=== PATIENT | female | born 1960 | race Caucasian/White ===

== ENCOUNTER → 2019-11-15 06:07 | Outpatient (CLI) | payer MEDICARE, SELFPAY ==
--- NOTE | 2019-11-15 06:08 | CA_ITS ---
APPROVED REPORT EXAM: Comprehensive 2D, Doppler, and color-flow Echocardiogram Administrative Support Associate: María Elena Chicas RDCS Ht: 5 ft 2 in Wt: 147lbs BSA: 1.68 BP: 149/91 mmHg Indications: CP,CAD,SOA,COPD,SMOKER,HTN,HLP 2D Dimensions LVOT 2.04 cm (M/F) 1.5-2.5 M-Mode Dimensions RVDd 2.79 cm (0.9-2.6) LVDd 4.26 cm (3.5-5.7) LVDs 3.15 cm (3.5-5.7) IVSd 0.79 cm (0.6-1.1) PWd 0.75 cm (0.6-1.1) EF (Teich) 51.50% FS 26.10% EDV (Teich) 81.30 mL ESV (Teich) 39.40 mL LV Diastology E/A Ratio 1.11 Mitral Valve MV A Velocity 63.00 (40-130 cm/s) Left Ventricle Left atrium is mildly enlarged, left ventricle is normal size, mild concentric left ventricular hypertrophy, visually estimated ejection fraction 55% with no regional wall motion abnormality, grade 1 diastolic dysfunction seen without tissue Doppler evidence of raise left atrial pressure. Right Ventricle Right atrium and right ventricular mildly enlarged with normal contractility. Aortic Valve Aortic valve is thickened and calcified leaflet chordae display good mobility, there is no aortic stenosis or aortic insufficiency. Mitral Valve Mitral valve leaflets are minimally thickened, there is mild mitral regurgitation. Tricuspid Valve Tricuspid valve is grossly normal, there is mild tricuspid regurgitation. Pulmonic Valve Pulmonic valve is poorly visualized. Great Vessels Aortic root is normal size. Pericardium No significant pericardial effusion noted. Conclusion 1. Mild biatrial enlargement, normal left ventricular size, mild concentric left ventricular hypertrophy, visually estimated ejection fraction 55% with no regional wall motion abnormality, grade 1 diastolic dysfunction seen without tissue Doppler evidence of raise left atrial pressure. 2. Mildly enlarged right ventricle with normal contractility. 3. Mild mitral and tricuspid regurgitation. 4. No significant pericardial effusion noted. Electronically signed by : Dionisio Fox, 11/15/2019 18:15:35
--- NOTE | 2019-11-15 06:13 | CA_ITS ---
APPROVED REPORT Exam: Pharmacologic Technologist: Nahomy Portillo Ht: 5 ft 2 in Wt: 147 lbs BSA: 1.68 m2 HR: 68 bpm BP: 129/76 mmHg Indications: Shortness of Breath, CHest pain Medical History Medications: Levothyroxine,,,,, Isosorbide,,,,, Aspirin,,,,, Pravastatin,,,,, Metformin,,,,, MeLOXICAM,,,,, CloPIdogrel,,,,, BisOPROLOL,,,,, Ezetimbe,,,,, Stress Test Details Test: LEXISCAN HR Resting HR: 71 bpm Max Heart Rate (APMHR): 159 bpm Max HR Achieved: 105 bpm Target HR (85% APMHR): 135 bpm % of APMHR: 66 Recovery HR: 88 bpm BP Resting BP: 129.0/76.0 mmHg Max BP: 156.0/89.0 mmHg Recovery BP: 123.0/79.0 mmHg ECG Clinical Exercise duration: 04:00 min Highest Stage Achieved: Stress ECG Conclusion Resting ECG: Normal sinus rhythm Symptoms: Chest heaviness, shortness of air, malaise. Arrhythmias/Ectopy: None ST-T Changes: NS T wave changes Conclusion: Unremarkable Lexiscan stress. Myoview images reported seprately Electronically signed by : Dionisio Fox, 11/15/2019 19:24:32
--- NOTE | 2019-11-15 06:13 | NM_ITS ---
APPROVED REPORT Exam: Nuclear Stress Test Indication: Chest pain, SOB, Fatigue, CAD, DM, High cholesterol, Tobacco use, Family history Patient Location: Outpatient Stress Tech: Nahomy Portillo CA Tech:Lisa Mijares, ARRT, RT (R)(N) Ht: 5 ft 2 in Wt: 147 lbs Bra Size: 42D HR: 68 bpm BP: 129/76 mmHg BSA: 1.68 m2 BMI: 26.8 History: Chest pain, SOB, Fatigue, CAD, DM, High cholesterol, Tobacco use, Family history Procedure: Patient received a 0.4 mg of intravenous Lexiscan, resting heart rate 68 bpm, resting blood pressure 129/76 mmHg, with Lexiscan maximum heart rate achived was 101 bpm which is Less than 85 % of the maximum predicted heart rate and blood pressure was 156/89 mmHg. Electrocardiogram Resting electrocardiogram showed sinus rhythm, nonspecific ST-T changes, with Lexiscan there is less than 1.[address] segment depression noted from the baseline EKG. The EKG portion of the Lexiscan Myoview is nondiagnostic. Cardiac Stress and Resting SPECT Images: Cardiac Stress and Resting SPECT images were obtained using technetium 99m Myoview 31.2 mCi stress and 10.56 mCi at rest. Gated SPECT for the analysis of segmental wall motion and calculation of the ejection fraction also done. Cardiac stress and resting SPECT images show uniform myocardial activity without segmental perfusion abnormality, computer derived ejection fraction is over 65% with no regional wall motion abnormality, right ventricle is normal size and contractility. Conclusion: 1. The EKG portion of the Lexiscan Myoview is nondiagnostic. 2. No scintigraphic evidence of reversible ischemia seen, computer derived ejection fraction is over 65% with no regional wall motion abnormality, right ventricle is normal size and contractility. 3. Normal Lexiscan Myoview study. Electronically signed by : Dionisio Fox, 11/15/2019 19:26:18
--- NOTE | 2019-11-15 07:19 | HMH.ITSHM ---
Current Home Medications as stated by this patient Dahiana Mckeon or administrative representative. []PRAVASTATIN METFORMIN MELOXICAM LEVOTHYROXINE ISOSORBIDE EZETIMIBE CLOPIDOGREL BISOPROLOL ASA NITRO
--- NOTE | 2019-11-15 09:44 | XR_ITS ---
PROCEDURE: XR CHEST 2V CLINICAL HISTORY: dyspnea and chest pain COMPARISON: No exams were available for comparison FINDINGS: The cardiomediastinal silhouette and pulmonary vascularity are within normal limits. The lungs are clear without infiltrates, suspicious nodules, or pleural effusions. There are tiny calcified left hilar nodes. No acute bony abnormalities. IMPRESSION: No acute findings. Dictated Dr. Que Borjas MD 11/15/2019 10:09 Dr. Que Diaz MD in [place] 11/15/2019 10:09
== END ==
LOC: RAD 06:08
PROVIDERS: PCP Internal Medicine; Visit Provider Urology
DX: I25.110 Atherosclerotic heart disease of native coronary artery with unstable angina pectoris (principal)
CPT/HCPCS: 71046; 78452; 93017; 93306; A9502; J2785

== ENCOUNTER → 2022-01-01 11:02 | Outpatient (CLI) | payer MEDICARE, OTHER, SELFPAY ==
[2022-01-01 11:55] LABS: Basophils # 0.1 K/mm3 (0-0.2); Basophils % 0.6 % (0.1-2.0); Eosinophils # 0.2 K/mm3 (0.0-0.4); Eosinophils % 1.4 % (0.1-12.0); Hemoglobin 13.2 g/dL (12.2-16.2); Lymphocytes # 2.7 K/mm3 (0.7-4.5); Lymphocytes % 25.2 % (10-50); Mean Corpuscular HGB Conc 32.1 g/dL (31.8-35.4); Mean Corpuscular Hemoglobin 26.6 pg (27.0-31.2); Mean Platelet Volume 8.1 fl (7.4-10.4); Monocytes # 0.5 K/mm3 (0.1-1.0); Monocytes % 4.7 % (1.7-9.3); Neutrophils # 7.4 K/mm3 (1.8-7.8); Neutrophils % 68.1 % (37.0-80.0); Platelet Count 334 K/mm3 (142-424); Red Blood Count 4.94 M/mm3 (4.20-5.40); Red Cell Distribution Width 15.8 % (11.5-17.5); White Blood Count 10.9 K/mm3 (4.8-10.8)
[2022-01-01 12:04] LABS: Chloride 103 mmol/L (98-107); Potassium 4.1 mmoL/L (3.5-5.1); Sodium 141 mmol/L (136-145)
[2022-01-01 12:06] LABS: Bilirubin,Unconjugated 0.3 mg/dL (0.0-1.1); Blood Urea Nitrogen 12 mg/dl (7-17); Estimated Glomerular Filt Rate 72 ml/min (>60); GFR (African American) 88 ML/MIN (>60)
[2022-01-01 12:07] LABS: Alanine Aminotransferase 19 U/L (12-78); Albumin Level 4.1 g/dl (3.5-5.0); Alkaline Phosphatase 118 U/L (38-126); Anion Gap 14.1 mEq/L (5-15); Aspartate Amino Transferase 25 U/L (14-36); Bilirubin,Indirect 0.2 mg/dL (0.0-0.9); Bilirubin,Total 0.2 mg/dl (0.2-1.3); Calcium 8.8 mg/dl (8.4-10.2); Carbon Dioxide 28 mmol/L (22.0-30.0); Glucose 238 mg/dl (74-100); Total Protein,Serum 6.9 g/dl (6.3-8.2)
[2022-01-01 12:19] LABS: Troponin I < 0.01 ng/ml (0.00-0.034)
[2022-01-01 12:38] LABS: Thyroid Stimulating Hormone 1.45 uIU/mL (0.465-4.68)
[2022-01-01 13:27] LABS: Free T4 (Free Thyroxine) 1.08 ng/dl (0.78-2.19)
== END ==
PROVIDERS: Visit Provider Nurse Practitioner Family
DX: E11.9 Type 2 diabetes mellitus without complications (principal); E78.49 Other hyperlipidemia; F17.200 Nicotine dependence, unspecified, uncomplicated; I11.9 Hypertensive heart disease without heart failure; I25.110 Atherosclerotic heart disease of native coronary artery with unstable angina pectoris; I65.29 Occlusion and stenosis of unspecified carotid artery; R06.09 Other forms of dyspnea; R94.31 Abnormal electrocardiogram [ECG] [EKG]; R06.00 Dyspnea, unspecified; I63.9 Cerebral infarction, unspecified; Z79.84 Long term (current) use of oral hypoglycemic drugs
CPT/HCPCS: 36415; 80048; 80076; 84439; 84443; 84484; 85025

== ENCOUNTER → 2022-01-21 08:07 | Outpatient (CLI) | payer MEDICARE, OTHER, SELFPAY ==
--- NOTE | 2022-01-21 08:46 | CA_ITS ---
FINAL REPORT TECHNIQUE: Color Doppler, duplex Doppler and fischer scale sonography of the bilateral neck arterial vasculature was performed. Velocities were measured in the carotid arteries. Stenosis evaluation based on the validated velocity criteria. CLINICAL HISTORY: MAXIMILIAN, CAD, Smoker FINDINGS: The peak systolic velocity of the right common carotid artery is 83 cm/s. The peak systolic velocity of the right internal carotid artery is 94 cm/s and end diastolic velocity 33 cm/s. The ICA/CCA ratio is 1.13. No significant plaque is present. The right external carotid artery is patent. The right vertebral artery is patent with antegrade flow. The peak systolic velocity of the left common carotid artery is 73 cm/s. The peak systolic velocity of the left internal carotid artery is 134 cm/s and end diastolic velocity 41 cm/s. The ICA/CCA ratio is 2.33. A small amount of plaque is present. The left external carotid artery is patent.The left vertebral artery is patent with antegrade flow. IMPRESSION: Less than 50% bilateral carotid stenoses. Bilateral patent vertebral arteries with antegrade flow. If indicated, CTA or MRA could further evaluate. Reviewed, Interpreted and Dictated by Tyson Mueller III, MD Transcribed by Mikey Graves Authenticated and [facility]
--- NOTE | 2022-01-21 09:23 | HMH.ITSHM ---
Current Home Medications as stated by this patient Dahiana Mckeon or field sales representative. []RANOLAZINE NITRO LEVOTHYROXINE ISOSORBIDE GLIPIZIDE EZETIMIBE CLOPIDOGREL BISOPROLOL ATORVASTATIN ASA
== END ==
PROVIDERS: PCP Nurse Practitioner; Visit Provider Nurse Practitioner Family
DX: R06.09 Other forms of dyspnea; I20.8 Other forms of angina pectoris; I11.9 Hypertensive heart disease without heart failure; E78.49 Other hyperlipidemia; R94.31 Abnormal electrocardiogram [ECG] [EKG]; R09.89 Other specified symptoms and signs involving the circulatory and respiratory systems; I65.23 Occlusion and stenosis of bilateral carotid arteries; F17.200 Nicotine dependence, unspecified, uncomplicated
CPT/HCPCS: 78452; 93017; 93306; 93880; A9502; J2785

== ENCOUNTER 2022-05-19 09:04 | Day surgery (SDC) | payer MEDICARE, OTHER, SELFPAY ==
[2022-05-19] VITALS (14 sets, daily range): BP systolic 121–148; BP diastolic 59–99; PULSE 62–90; RESP 17–18; TEMP 37; O2SAT 92–98; BMI 25.4
--- NOTE | 2022-05-19 07:24 | IR_ITS ---
APPROVED REPORT Patient Location: Outpatient Precipitator Supervisor: DEANNA Paris RT (R) PROCEDURES Left heart catheterization Left ventriculogram Selective coronary angiogram Drug-eluting stent deployment in the mid dominant circumflex artery INDICATION Coronary artery disease, Typical angina pectoris Informed consent was obtained prior to the procedure. COMPLICATIONS None Estimated Blood Loss: Less than 10 ML TECHNIQUE One percent lidocaine used to anesthetize the right anterior aspect of the wrist. The right radial artery was accessed via the Seldinger technique. A 6 Tamazight sheath was placed in the right radial artery. 2.5 mg of verapamil, 800 mcg of nitroglycerin, 1mg Lidocaine and 5000 U Heparin were given through the arterial sheath. The papa catheter was also used to perform left heart catheterization, left ventriculogram and selective coronary angiogram. At the end the diagnostic procedure therapeutic heparin was administered giving a therapeutic ACT and the guide cath was placed in left main artery followed by a Choice PT extra-support wire into the circumflex artery. A 3 mm x 15 mm resolute Rutland stent was deployed at 22 lionel reducing the calcified hazy eccentric stenosis to 0%. At the end of the procedure the apparatus was removed the sheath was removed and hemostasis was achieved using TR banding patient was transferred to the postop putting in stable condition ANGIOGRAPHIC RESULTS The left main artery Normal The left anterior descending artery Has proximal 10 to 20% stenosis with a mid vessel eccentric 30 to 40% stenosis The circumflex artery Is a dominant vessel and has proximal 10% stenosis with an eccentric calcified fingerlike projection just proximal to the second obtuse marginal artery producing at least 70% stenosis followed by an additional 30 to 40% stenosis at the junction of the third obtuse marginal artery and true circumflex artery The right coronary artery Is a vestigial vessel with a stent in the ostial proximal segment which has tandem greater than 90% stenoses The GODDARD ventriculogram reveals Normal 65% The left ventricular end-diastolic pressure 15 mmHg IMPRESSION Eccentric calcified hazy lesion in the mid dominant circumflex artery which was successfully stenting reducing the stenosis to 0% with 1 drug-eluting stent Mild to moderate disease in the mid LAD Severe stenosis in a vestigial nondominant right coronary artery which does not appear to be appropriate for stenting or restenting Normal ejection fraction Normal left ventricular end-diastolic pressure PLAN 1. Dual antiplatelet therapy 2. Risk factor modification 3. Cardiac rehabilitation 4. Avoidance of tobacco products 5. Maximize antianginal medications. It is unlikely the vestigial right coronary artery is producing angina and I do not believe stenting this vessel would be clinically appropriate or produce any angina relief 6. LDL less than 55 to be achieved with high intensity statin Electronically signed by : Cristian Casillas MD 05/19/2022 10:48:06
[2022-05-19 10:07] LABS: Basophils # 0.2 K/mm3 (0-0.2); Basophils % 1.6 % (0.1-2.0); Eosinophils # 0.2 K/mm3 (0.0-0.4); Eosinophils % 1.8 % (0.1-12.0); Hematocrit 41.9 % (37.0-47.0); Hemoglobin 13.8 g/dL (12.2-16.2); Lymphocytes # 3.8 K/mm3 (0.7-4.5); Lymphocytes % 33.6 % (10-50); Mean Corpuscular HGB Conc 32.9 g/dL (31.8-35.4); Mean Corpuscular Hemoglobin 27.3 pg (27.0-31.2); Mean Corpuscular Volume 82.9 fl (81-99); Mean Platelet Volume 7.9 fl (7.4-10.4); Monocytes # 0.6 K/mm3 (0.1-1.0); Monocytes % 5.5 % (1.7-9.3); Neutrophils # 6.4 K/mm3 (1.8-7.8); Neutrophils % 57.4 % (37.0-80.0); Platelet Count 402 K/mm3 (142-424); Red Blood Count 5.05 M/mm3 (4.20-5.40); Red Cell Distribution Width 15.9 % (11.5-17.5); White Blood Count 11.1 K/mm3 (4.8-10.8)
[2022-05-19 10:09] LABS: Blood Urea Nitrogen 16 mg/dl (7-17); Calcium 9.1 mg/dl (8.4-10.2); Carbon Dioxide 26 mmol/L (22.0-30.0); Chloride 106 mmol/L (98-107); Creatinine Clearance Estimated 57 mL/min (50-200); Estimated Glomerular Filt Rate 56 ml/min (>60); GFR (African American) 68 ML/MIN (>60); Glucose 159 mg/dl (74-100); Sodium 139 mmol/L (136-145)
[2022-05-19 11:02] LABS: CATHL Activated Clotting Time 261 SEC (74-125)
--- NOTE | 2022-05-19 14:10 | HMH.PHACL ---
[facility] [employer] Specialist Discharge Med Coin Machine Supervisor: Dahiana Mckeon has received discharge medication counseling on the following medications: -ASPIRIN (ON PREVIOUSLY, NO QUESTIONS) -ATORVASTATIN (ON PREVIOUSLY, NO QUESTIONS) -BISOPROLOL (ON PREVIOUSLY, NO QUESTIONS) -PLAVIX (ON PREVIOUSLY, NO QUESTIONS) -RAMIPRIL (FOR BP, DAILY, DIZZINESS, LIGHTHEADEDNESS, LOW BP, COUGH POSSIBLE, SWELLING IN NECK, HEAD, ARMS OR LEGS = GO TO THE ER). PATIENT VERBALIZED NO QUESTIONS AT THIS TIME.
== END 2022-05-19 14:46 | disposition home or self-care (01) ==
PROVIDERS: PCP Nurse Practitioner; Visit Provider Internal Medicine
DX: I25.118 Atherosclerotic heart disease of native coronary artery with other forms of angina pectoris (principal); Z79.01 Long term (current) use of anticoagulants; F17.210 Nicotine dependence, cigarettes, uncomplicated; E78.5 Hyperlipidemia, unspecified; I11.9 Hypertensive heart disease without heart failure; E03.9 Hypothyroidism, unspecified; Z95.5 Presence of coronary angioplasty implant and graft; Z79.899 Other long term (current) drug therapy
CPT/HCPCS: 80048; 85025; 85347; 92928; 93458; 99152; C1725; C1769; C1876; C9600; J1644; Q9967

== ENCOUNTER → 2022-12-23 11:36 | Outpatient (CLI) | payer MEDICARE, OTHER, SELFPAY ==
[2022-12-23 12:28] LABS: Basophils # 0.1 K/mm3 (0-0.2); Basophils % 0.9 % (0.1-2.0); Eosinophils # 0.1 K/mm3 (0.0-0.4); Eosinophils % 1.2 % (0.1-12.0); Hematocrit 42.6 % (37.0-47.0); Hemoglobin 13.5 g/dL (12.2-16.2); Lymphocytes # 3.2 K/mm3 (0.7-4.5); Lymphocytes % 35.8 % (10-50); Mean Corpuscular HGB Conc 31.7 g/dL (31.8-35.4); Mean Corpuscular Hemoglobin 28.2 pg (27.0-31.2); Mean Corpuscular Volume 88.8 fl (81-99); Monocytes # 0.5 K/mm3 (0.1-1.0); Monocytes % 5.6 % (1.7-9.3); Neutrophils # 5.1 K/mm3 (1.8-7.8); Neutrophils % 56.6 % (37.0-80.0); Platelet Count 350 K/mm3 (142-424); Red Blood Count 4.79 M/mm3 (4.20-5.40); White Blood Count 9.1 K/mm3 (4.8-10.8)
[2022-12-23 13:14] LABS: Chloride 104 mmol/L (98-107)
[2022-12-23 13:15] LABS: Potassium 4.6 mmoL/L (3.5-5.1); Sodium 140 mmol/L (136-145)
[2022-12-23 13:17] LABS: Alanine Aminotransferase 29 U/L (12-78); Anion Gap 15.6 mEq/L (5-15); Aspartate Amino Transferase 26 U/L (14-36); Bilirubin,Unconjugated 0.2 mg/dL (0.0-1.1); Blood Urea Nitrogen 17 mg/dl (7-17); Carbon Dioxide 25 mmol/L (22.0-30.0); Cholesterol 127 mg/dl (140-200); Estimated Glomerular Filt Rate 72 ml/min (>60); GFR (African American) 87 ML/MIN (>60); Triglycerides 159 mg/dl (30-150); VLDL Cholesterol 32 mg/dL (0-40)
[2022-12-23 13:18] LABS: Alkaline Phosphatase 97 U/L (38-126); Bilirubin,Direct 0.3 mg/dl (0.0-0.4); Bilirubin,Indirect 0.2 mg/dL (0.0-0.9); Bilirubin,Total 0.5 mg/dl (0.2-1.3); Calcium 9.2 mg/dl (8.4-10.2); Chol/HDL Ratio 4.4 (1-3.5); Glucose 152 mg/dl (74-100); HDL Cholesterol 29 mg/dl (40-60); Magnesium 1.6 mg/dl (1.6-2.3); Total Protein,Serum 6.8 g/dl (6.3-8.2)
[2022-12-23 13:32] LABS: Direct LDL Cholesterol 71.25 mg/dL (100-129)
[2022-12-23 13:54] LABS: Thyroid Stimulating Hormone 1.14 uIU/mL (0.465-4.68)
[2022-12-23 14:27] LABS: Free T4 (Free Thyroxine) 1.26 ng/dl (0.78-2.19)
== END ==
PROVIDERS: Physician Assistant; PCP Nurse Practitioner; Visit Provider Physician Assistant
DX: E78.5 Hyperlipidemia, unspecified (principal); I11.9 Hypertensive heart disease without heart failure; I25.10 Atherosclerotic heart disease of native coronary artery without angina pectoris; I65.29 Occlusion and stenosis of unspecified carotid artery; R06.00 Dyspnea, unspecified
CPT/HCPCS: 36415; 80048; 80061; 80076; 83735; 84439; 84443; 85025

== ENCOUNTER 2023-09-29 11:20 | Outpatient (CLI) | payer MEDICARE, OTHER, SELFPAY ==
--- NOTE | 2023-09-29 11:21 | CA_ITS ---
FINAL REPORT CLINICAL HISTORY: Pain in bilateral legs, hx DVT 2019,smoker ASA 81mg, Plavix COMPARISON: None FINDINGS: Multiple transverse and longitudinal scans were performed of the femoral popliteal deep venous system, with augmentation and compression maneuvers. Normal phasic flow was noted in the visualized deep venous system. No intraluminal increased echogenicity is noted to suggest thrombus. There is normal compression and augmentation of the venous structures. No abnormal venous collaterals are seen. IMPRESSION: No evidence of deep venous thrombosis of the bilateral lower extremities. Reviewed, Interpreted and Dictated by Chip Monson MD Transcribed by Hanna Gale Authenticated and [facility]
== END 2023-09-29 23:59 | disposition home or self-care (01) ==
PROVIDERS: PCP Nurse Practitioner; Visit Provider Nurse Practitioner
DX: M79.604 Pain in right leg (principal); M79.605 Pain in left leg; Z86.718 Personal history of other venous thrombosis and embolism
CPT/HCPCS: 93970

== ENCOUNTER 2023-10-20 07:29 | Outpatient (CLI) | payer MEDICARE, OTHER, SELFPAY ==
--- NOTE | 2023-10-20 07:30 | NM_ITS ---
APPROVED REPORT Exam: Nuclear Stress Test Indication: Chest pain, SOB, Abnormal EKG, HTN, DM, High cholesterol, Tobacco use, Family history, CAD Patient Location: Outpatient Stress Tech: Mayra Shaw NM Tech:Lisa Mijares, ARRT, RT (R)(N) Ht: 5 ft 2 in Wt: 140 lbs Bra Size: 42D HR: 76 bpm BP: 117/67 mmHg BSA: 1.64 m2 TID: 0.97 BMI: 25.6 History: Chest pain, SOB, Abnormal EKG, HTN, DM, High cholesterol, Tobacco use, Family history, CAD Procedure: Patient received 0.4 mg of intravenous Lexiscan, resting heart rate 76 bpm, resting blood pressure 117/67 mmHg, with Lexiscan maximum heart rate achieved was 115 bpm which is % of the maximum predicted heart rate and blood pressure was 138/75 mmHg. With Lexiscan, patient denied any complaint of chest pain. Cardiac Stress and Resting SPECT Images: Cardiac Stress and Resting SPECT images were obtained using technetium 99m Myoview 32.4 mCi stress and 10.93 mCi at rest. Resting and stress imaging in supine and prone positions demonstrate no evidence of fixed or reversible perfusion defects. Gated imaging demonstrates normal global and regional LV systolic function. LVEF is calculated at 68%. Conclusion: No evidence of fixed or reversible perfusion defects. Gated imaging demonstrates normal global and regional LV systolic function. LVEF is calculated at 68%. Electronically signed by : Luisa Novoa MD 10/21/2023 14:53:49
[2023-10-20] MEDS: SODIUM CHLORIDE 0.9% 10ML SYR (RAD ONLY) 10 ML IV ×2 (09:26)
[2023-10-20] MEDS: ISOTOPE MYOVIEW (PER STUDY) 1 DOSE IV (09:26)
[2023-10-20] MEDS: REGADENOSON 0.4MG/5ML SYRINGE 0.4 MG IV (09:26)
--- NOTE | 2023-10-20 09:29 | CA_ITS ---
APPROVED REPORT EXAM: Comprehensive 2D, Doppler, and color-flow Echocardiogram Assistant Store Manager: Hanna Rod CRT Ht: 5 ft 2 in Wt: 136lbs BSA: 1.62 BP: 124/79 mmHg Indications: Chest Pain, Shortness of Breath, Palpitations, Hyperlipidemia, Hypertension/HDD, stents, PVD, SMOKER 2D Dimensions Left Atrium 2.87 cm LA Volume 14.70 mL LVOT 2.00 cm (M/F) 1.5-2.5 LA Volume Index 9.10 mL/m2 (M/F) 16-34 EF AP4 56.80 % GL Strain -16.8 % M-Mode Dimensions RVDd 2.17 cm (0.9-2.6) LVDd 3.96 cm (3.5-5.7) Ao Diam 3.62 cm (2.0-3.7) LVDs 1.85 cm (3.5-5.7) IVSd 0.98 cm (0.6-1.1) PWd 0.78 cm (0.6-1.1) EF (Teich) 84.80% FS 53.30% EDV (Teich) 68.30 mL TAPSE 1.85 (<1.7) ESV (Teich) 10.40 mL LV Diastology E Decel Time 178 (160-240 msec) E/A Ratio 0.90 MED E' 7.8 (>= 7 cm/sec) MED A' 13.90 cm/s E'/MED E' Ratio 8.96 (<= 14) LAT E' 7.6 (>= 10 cm/sec) LAT A' 11.30 cm/s E/LAT E' Ratio 9.20 (<= 14) Aortic Valve AoV Peak Lewis. 117.0 (50-130 cm/s) AO Peak GR. 5.50 mmHg Mitral Valve MV E Max Lewis. 70.0 (40-130 cm/s) MV A Velocity 78.0 (40-130 cm/s) E/A Ratio 0.90 MV Decel. Time 178 (160-240 ms) Tricuspid Valve TR P. Velocity 215.00 cm/s RAP Estimate 10.00 mmHg RVSP 28.50 mmHg Left Ventricle The left ventricle is normal size. The left ventricular systolic function is normal. The left ventricular ejection fraction is within the normal range. There is increased LV wall thickness. There is normal LV segmental wall motion. The left ventricular diastolic function is normal. LVEF is 60%. Right Ventricle The right ventricle is normal size. The right ventricular systolic function is normal. Atria The left atrium size is normal. The right atrium size is normal. There is no Doppler evidence of interatrial shunt. Aortic Valve The aortic valve is mildly thickened. There is no aortic valvular stenosis. No aortic regurgitation is present. Mitral Valve The mitral valve leaflets are mildly thickened. No evidence of mitral valve stenosis. Trace mitral regurgitation. Tricuspid Valve The tricuspid valve leaflets are thin and pliable. Trace tricuspid regurgitation. There is insufficient TR jet to estimate RVSP. Pulmonic Valve The pulmonary valve is normal in structure. Trace pulmonic regurgitation. Great Vessels The aortic root is normal in size. The ascending aorta is not well-visualized. IVC is normal in size and collapses >50% with inspiration. Pericardium There is no pericardial effusion. Conclusion Normal biventricular systolic function. No significant valvular stenosis or regurgitation. Electronically signed by : Luisa Novoa MD 10/21/2023 14:57:37
--- NOTE | 2023-10-20 09:33 | CA_ITS ---
APPROVED REPORT Exam: Pharmacologic Technologist: Mayra Sanabria, Ht: 5 ft 2 in Wt: 136 lbs BSA: 1.62 m2 HR: 87 bpm BP: 117/67 mmHg Rhythm: NSR Medical History Medications: Levothyroxine,,,,, Aspirin,,,,, Atorvastatin,,,,, Glipizide,,,,, Ramipril,,,,, CloPIdogrel,,,,, Nitroglycerin,,,,, Ezetimbe,,,,, Ranolazine ER,,,,, Stress Test Details Test: LEXISCAN Reason for pharmacologic stress test: physical limitation. HR Resting HR: 76 bpm Max Heart Rate (APMHR): 155 bpm Max HR Achieved: 115 bpm Target HR (85% APMHR): 132 bpm % of APMHR: 74 Recovery HR: 93 bpm BP Resting BP: 117.0/67.0 mmHg Max BP: 138.0/75.0 mmHg Recovery BP: 115.0/79.0 mmHg ECG Resting ECG: SR Stress ECG: No significant ST changes Arrhythmia: Occasional PVCs Clinical Exercise duration: 03:56 min Highest Stage Achieved: Stress ECG Conclusion Symptoms: dyspnea, nausea Arrhythmias/Ectopy: PVC ST-T Changes: No significant ST changes Conclusion: EKG portion unremarkable due to Lexiscan infusion. Myoview images reported separately. Test Summary REST . . . . . . . Resting REST 02:23 . . 76 . 117/ 67 . . Stage 1 . . . . . . . Myoview Injected Stage 1 01:00 . . 114 . . . . Stage 2 01:00 . . 104 . 138/ 75 . . Stage 3 01:00 . . 103 . 111/ 77 . . Stage 4 00:56 . . 90 . 109/ 66 . Stop exercise at 03:56 RECOVERY 01:00 . . 96 . . . . RECOVERY 02:00 . . 88 . 107/ 84 . . RECOVERY 03:00 . . 95 . 113/ 67 . . RECOVERY 03:30 . . 95 . 115/ 79 . . Electronically signed by : Luisa Novoa MD 10/21/2023 14:52:12
== END 2023-10-20 23:59 | disposition home or self-care (01) ==
LOC: RAD 07:30
PROVIDERS: PCP Nurse Practitioner; Visit Provider Nurse Practitioner
DX: R06.09 Other forms of dyspnea (principal); I25.118 Atherosclerotic heart disease of native coronary artery with other forms of angina pectoris; R94.31 Abnormal electrocardiogram [ECG] [EKG]; F17.210 Nicotine dependence, cigarettes, uncomplicated
CPT/HCPCS: 78452; 93017; 93018; 93306; A9502; J2785